=== PATIENT | female | born 1970 | race Two or more races ===

== ENCOUNTER 2018-08-17 21:05 | Emergency (ER) | payer MEDICAID ==
[~2018-08-17] VITALS: Ht 154.9 cm; Wt 81.6 kg
[2018-08-17] MEDS ORDERED: METOCLOPRAMIDE HCL 10 MG/2 ML VIAL IV ONE (22:00)
[2018-08-17] MEDS ORDERED: METOCLOPRAMIDE HCL 10 MG/2 ML VIAL ONE (22:05)
--- NOTE | 2018-08-17 22:19 | NUR ---
BIBF. C/O "HAVING HEADACHE SINCE YESTERDAY, FEELS HEAD SPINING, FEELS DRUNK. AWAKE A/OX4 AT BED
[2018-08-17] MEDS ORDERED: KETOROLAC TROMETHAMINE 15 MG/ML VIAL ONE (23:58)
[2018-08-18] MEDS ORDERED: KETOROLAC TROMETHAMINE INJ 30 MG/ML VIAL IV ONE
[2018-08-18 00:31] VITALS: BP 112/76
== END 2018-08-18 00:33 | disposition home or self-care (01) ==
LOC: ER 21:05
DX: R51 Headache (principal); R42 Dizziness and giddiness
CPT/HCPCS: 70450; 82962; 96374; 96375; 99284; J1885; J2765